=== PATIENT | female | born 1965 | race Caucasian/White ===

== ENCOUNTER 2024-11-22 21:16 | Emergency (ER) | payer BC, SELFPAY ==
[2024-11-22 21:24] VITALS: BP 148/91
[2024-11-22 22:24] VITALS: BP 129/66
[2024-11-22 22:38] LABS: % Basophils 0.9 % (0-2); % Eosinophils 2.5 % (0-6); % Immature Granulocytes 0.2 % (0-0.5); % Monocytes 7.3 % (1.7-9.3); % Neutrophils 53.1 % (42.2-75.2); Absolute Basophils 0.1 10^3/uL (0-0.2); Absolute Eosinophils 0.2 10^3/uL (0-0.7); Absolute Lymphocytes 2.3 10^3/uL (1.2-3.4); Absolute Monocytes 0.5 10^3/uL (0.1-0.6); Absolute Neutrophils 3.4 10^3/uL (1.4-6.5); Hematocrit 40.3 % (37.0-47.0); Hemoglobin 13.7 g/dL (12.0-16.0); Mean Corpuscular Hgb 29.3 pg (27.0-31.0); Mean Corpuscular Volume 86.3 fL (81.0-99.0); Mean Platelet Volume 9.6 fL (7.4-10.4); Nucleated Red Blood Cells % 0.3 %; Platelet Count 351 10^3/uL (130-400); Red Blood Cell Count 4.67 10^6/uL (4.20-5.40); Red Cell Dist. Width 12.5 % (11.5-14.5); White Blood Cell Count 6.4 10^3/uL (4.8-10.8)
[2024-11-22 23:20] LABS: Troponin I < 0.012 ng/ml
[2024-11-22 23:21] LABS: D-Dimer < 0.27 ug/mlFEU (0.00-0.50)
[2024-11-22 23:33] VITALS: BP 130/76
--- NOTE | 2024-11-22 23:52 | ED.GENMED ---
History of Present Illness
General
Chief Complaint: Chest Pain
Source: patient and spouse
Exam Limitations: none
Time Seen by Provider: 11/22/24 21:47
Nursing documentation reviewed up to this point in time: agreed with
History of Present Illness
History of Present Illness:
59-year-old female with past medical history of hyperlipidemia, 'extra beats' (follows with Dr. Sandra for cardiology), GERD who presents to the emergency room for evaluation of chest pain. Patient reports onset of symptoms about 5 days ago and
they have been constant since. She describes dull aching in the left lower chest/upper abdomen. Occasionally radiates towards the back. No clear triggering or relieving factors noted�no exertional component. She reports associated intermittent
palpitations/fluttering sensation. She denies any significant amount of shortness of breath. No cough, fevers, chills. She denies any nausea, vomiting, diarrhea. Denies swelling or pain in her legs. Denies other complaints. She reports that
she has had similar symptoms related to GERD in the past but given her intermittent palpitations she was worried it could be cardiac chest pain and decided to come to the ER to be evaluated.
Past History
Past History
ED Past Medical History: Arrthythmia (PVC's, PAC's), Hypercholesterolemia, Other (IBS, kidney stones) and Other (Autoimmune hepatitis)
ED Past Surgical History: , Gynecological (Hysterectomy) and Other (Umbilical hernia repair)
Social History
Tobacco: Smoker
Alcohol: None
Personal:
Living: with family
Employment: Employed
Family History
Family History: Other (Noncontributory)
Review of Systems
Review of Systems
All Other Systems: ROS reviewed and negative except as documented in HPI and ROS
Constitutional: Denies fever
Respiratory: Denies trouble breathing
Cardiac: Reports chest pain and palpitations; Denies syncope
ABD/GI: Reports abdominal pain; Denies nausea or vomiting
: Denies dysuria or flank pain
Musculoskeletal: Denies edema or neck pain
Neurological: Denies headache
Phy Exam
Physical Exam
Physical Exam:
General: Awake, alert, oriented x3; no acute distress
Head: Normocephalic, atraumatic
Eyes: Conjunctiva normal, sclera anicteric
Throat: Airway intact, handling secretions
Neck: Trachea midline, no JVD
Lungs: Clear to auscultation bilaterally, no wheezing, rales, rhonchi
Heart: Regular rate and rhythm, no murmurs, gallops, or rubs
Abd: Soft, non distended, nontender to deep palpation
Neuro: No gross deficits
Skin: no rash in area of concern
Extremities: No edema in extremities, equal pulses in all extremities
Scores
Heart Failure Risk
Heart Failure Risk Score: Not Applicable
Heart Score for Chest Pain Patients
STEMI patient?: No
History: Slightly or Non-Suspicious
ECG: Normal
Age: >45 - <65 years
Risk Factors: 1 or 2 Risk Factors
Troponin: </= Normal Limit
Heart Score for Chest Pain Patients: 2
Heart Score Risk: 2.5% MACE over next 6 weeks
PE Wells Score
Symptoms of DVT: No
No alternative diagnosis better explains the illness: No
Tachycardia with pulse > 100: No
Immobilization (>=3 days) or surgery within previous 4 weeks: No
Prior history of DVT or pulmonary embolism: No
Presence of hemoptysis: No
Presence of malignancy: No
Pulmonary Embolism Risk Score: 0
Probability of PE: Pt is low risk
Withdrawal Assessment of Alcohol
Withdrawal Assessment Completed?: Not applicable
Course
Orders/Labs/Results
Orders:
Orders
11/22/24 21:18
EKG [Electrocardiogram (*1)] Urgent
Reason for Study: Chest Pain
11/22/24 21:49
Electrocardiogram (*1) Urgent
Reason for Study: Chest Pain
EKG- Treatment ONCE
CR Chest - 2 Views Urgent
Comment:
Reason For Exam: cp
11/22/24 22:12
Complete Blood Count/With Diff Urgent
D-Dimer Urgent
11/22/24 22:47
Troponin I Urgent
11/22/24 23:21
Comprehensive Metabolic Panel Urgent
11/22/24 23:26
NT-proBNP Urgent
Troponin I Urgent
11/22/24 23:36
Urinalysis Reflex To Culture Urgent
Date Specimen was Collected: 11/22/24
Time Specimen was Collected: 23:30
Abnormal Lab Results
11/22/24
23:21
Glucose 123 H mg/dl
(70-99)
11/22/24 22:12
11/22/24 23:21
Vital Signs
Initial and Last Documented VS:
Initial Vital Signs
Temp Pulse Resp BP Pulse Ox
37.0 C 95 18 148/91 100
11/22/24 21:24 11/22/24 21:24 11/22/24 21:24 11/22/24 21:24 11/22/24 21:24
Last Documented Vital Signs
Temp Pulse Resp BP Pulse Ox
37.0 C 74 15 119/67 96
11/22/24 21:24 11/23/24 00:00 11/23/24 00:00 11/23/24 00:00 11/23/24 00:00
MDM/Problems Addressed
Differential Diagnosis Includes:
GERD, ACS, PE, pneumothorax, pneumonia, costochondritis, paroxysmal A-fib/flutter
MDM/Problems Addressed:
59-year-old female presents for evaluation of chest pain as described above. Vitals and exam as above. EKG shows sinus rhythm no acute ischemia. Labs were sent in triage including CBC and CMP which showed no clinically significant abnormalities.
Check troponin. Check D-dimer. Check chest x-ray. Will monitor closely reassess after the above.
Troponin undetectable and with symptoms for 5 days this is sufficient to rule out acute [place]. Her D-dimer is negative. Chest x-ray reviewed by me shows no acute disease. Vital signs stable on clinical reassessment. At this point a very low
suspicion for emergent pathology, suspect her symptoms could be GERD related as she has had similar symptoms with the GERD in the past. While she has had occasional palpitations this is a chronic issue for her and she is known to cardiology. Will
plan to discharge with outpatient cardiology and PCP follow-up. Patient feels very comfortable with this plan. All questions answered.
Chronic conditions affecting care:
GERD, hyperlipidemia
*Radiology
Radiology exam reviewed: preliminary read by ED provider
*Pulse Oximetry
Patient hypoxic: no
*EKG
Interpreted by ED Provider?: Yes
Comparison EKG: no changes (Compared to February 13, 2023 no significant changes noted)
Heart Rate: 98
Rate: normal
Rhythm: sinus
Nesbit: normal axis
Interval: normal interval
QRS Pattern: normal QRS
Ischemia: non-specific ST changes
*Critical Care Note
Total Time (30-74mins, 75-104mins- exclusive of procedures): Not Applicable
Data Reviewed
Review of Other/Old Records Reveals: Labs, Records and Testing (Prior stress testing reviewed)
Source: patient, records and spouse
ED Attending Note
-
Portions of this chart may have been created with voice recognition software.� Occasional wrong word or��sound alike� substitutions may have occurred due to the inherent limitations of voice recognition software.
Discharge Plan
Departure
Patient Disposition: Home (Routine Discharge)
Date of Disposition: 11/23/24
Time of Disposition: 00:05
Patient with high blood pressure during this ER visit?: Yes
Discharge Problem:
Chest pain, Heart palpitations
Instructions: Chest Pain DCA Follow Up
Prescriptions:
No Action
methocarbamol 500 MG tablet
500 mg PO HS
nebivolol 2.5 MG tablet
2.5 mg PO DAILY
Restoril:
1 tab PO HS
Celebrex:
1 tab PO DAILY
sucralfate [Carafate] 1 gram tablet
1 g PO AC 28 Days Qty: 84 0RF
Referrals:
Fabian Sandra MD [Active] - Call in 1-3 days for appt
Keenan Oconnor MD [Family Provider] - Follow up in 2-3 days
Activity Restrictions/Additional Instructions:
Thank you for visiting the Emergency Department at [facility].
1. Please schedule a follow up appointment as directed. Call first thing tomorrow morning to make an appointment.
2. If indicated, please take your medications as instructed and indicated on discharge paperwork.
3. If any of your symptoms do not improve, or persist, or become more severe within 6-12 hours, please return to the emergency department for further care.
4. Please return to the emergency department if you develop a headache, neck pain/stiffness, fever greater than 100.4F, chest pain, shortness of breath, persistent nausea, vomiting, slurred speech, difficulty walking, numbness/tingling, weakness,
signs of infection or any other symptoms that are worrisome to you.
Please call [phone] if you have any questions.
Interventions
Interventions:
*Risk Screen - Suicide Last Done: 11/22/24 21:24
*General Assessment Last Done: 11/22/24 23:31
*Neglect/Abuse Screening Last Done: 11/22/24 21:24
*ED- Fall Risk Assessment Last Done: 11/22/24 23:31
*ED COVID-19 Vaccine History Last Done: 11/22/24 23:31
ED- Cardiac Assessment Last Done: 11/22/24 22:25
Discharge Date and Time
Print Language: YI
[2024-11-22 23:54] LABS: ALT (SGPT) 17 U/L (0-35); AST (SGOT) 18 U/L (14-36); Albumin 4.5 g/dl (3.5-5.0); Alkaline Phosphatase 62 U/L (38-126); Blood Urea Nitrogen 13 mg/dl (7-17); Calcium 9.6 mg/dl (8.4-10.2); Chloride 106 mmol/L (98-107); Glucose 123 mg/dl (70-99); Potassium 4.2 mmol/L (3.5-5.1); Sodium 141 mmol/L (135-145); Total Bilirubin 0.2 mg/dl (0.2-1.3); eGFR > 60.00
[2024-11-23] VITALS: BP 119/67
[2024-11-23 00:03] LABS: Carbon Dioxide 26 mmol/L (22-30)
[2024-11-23 00:16] LABS: Urine Albumin Negative (Neg - Trace); Urine Bilirubin Negative (Negative); Urine Character Clear (Clear); Urine Glucose Negative (Negative); Urine Ketone Negative (Negative); Urine Leukocyte 1+ (Negative); Urine Nitrite Negative (Negative); Urine Occult Blood Negative (Negative); Urine Urobilinogen Negative (Neg - 1+)
[2024-11-23 00:25] LABS: Urine Color Straw
[2024-11-23 01:10] LABS: Urine Squamous Cell >30 /LPF (Few)
[2024-11-23 01:12] LABS: Urine Red Blood Cell None Seen /HPF (0-2)
[2024-11-23 01:14] LABS: Urine Bacteria Few (Negative)
== END 2024-11-23 00:27 | disposition home or self-care (01) ==
LOC: EMR 21:16
PROVIDERS: EMERGENCY PHYSICIAN Emergency Medicine; FAMILY PHYSICIAN Internal Medicine
DX: R07.9 Chest pain, unspecified (principal); R00.2 Palpitations; E78.00 Pure hypercholesterolemia, unspecified; F17.200 Nicotine dependence, unspecified, uncomplicated; K21.9 Gastro-esophageal reflux disease without esophagitis
CPT/HCPCS: 99285; 71046; 80053; 81003; 81015; 84484; 85025; 85379; 87086; 93005